=== PATIENT | male | born 1985 | race Asian ===

== ENCOUNTER 2021-01-19 12:49 | Emergency (ER) | payer SELFPAY ==
[2021-01-19] MEDS ORDERED: ALBUTEROL 2.5 MG/3 ML NEBU IH ONE (13:16)
[2021-01-19] MEDS ORDERED: IPRATROPIUM 0.02% NEBU 2.5 ML IH ONE (13:16)
--- NOTE | 2021-01-19 13:56 | Emergency Department Report ---
HPI - General Chief Complaint: Dyspnea/Respdistress Time Seen by Provider: 01/19/21 12:57 - HPI HPI: MSE 5 The patient is a 35-year-old male present with a chief complaint of cough. The patient states he flew back from [place] approximate 1 week ago since then he has had a progressively worsening cough has been productive of clear and thin yellow sputum. Patient is to subjective fever and pleurisy. Patient states for the past 3 days she has developed shortness of breath. Patient states he did receive the Jawbone vaccine for Covid and received a second dose in August 2020 ED Past Medical Hx - Past Medical History Previous Medical History?: No - Surgical History Past Surgical History?: No Hx Appendectomy: Yes - Family History Family history: no significant - Social History Smoking Status: Current Every Day Smoker (1/3 pack/day) Substance Use Type: None (Denies illicit drug use), Alcohol (Occasional) - Medications Home Medications: Home Medications Medication Instructions Recorded Confirmed Last Taken Type Albuterol Mdi (or & Nicu Only) 2 puff IH QID PRN #8.5 gram 01/19/21 Unknown Rx [ProAir HFA Inhaler] Benzonatate [Tessalon Perles] 100 mg PO Q8HR #30 capsule 01/19/21 Unknown Rx levoFLOXacin [Levaquin TAB] 500 mg PO QDAY #10 tablet 01/19/21 Unknown Rx traMADoL [Ultram] 50 mg PO Q6HR PRN #10 tablet 01/19/21 Unknown Rx ED Review of Systems ROS: Stated complaint: FEVER Other details as noted in HPI Constitutional: fever (Subjective) Eyes: denies: eye pain ENT: denies: throat pain Respiratory: cough, shortness of breath Cardiovascular: denies: chest pain Endocrine: no symptoms reported Gastrointestinal: denies: abdominal pain Genitourinary: denies: dysuria Musculoskeletal: denies: back pain Neurological: headache (With cough) Physical Exam - Physical Exam Vital Signs: Vital Signs 01/19/21 12:55 Temperature 98.9 F Pulse Rate 97 H Respiratory 24 Rate Blood Pressure 154/102 O2 Sat by Pulse 98 Oximetry Physical Exam: GENERAL: The patient is well-developed well-nourished male lying on stretcher coughing occasionally. [] HEENT: Normocephalic. Atraumatic. Extraocular motions are intact. Patient has moist mucous membranes. NECK: Supple. Trachea midline CHEST/LUNGS: Clear to auscultation. There is no respiratory distress noted. Occasional cough HEART/CARDIOVASCULAR: Regular. There is no tachycardia. There is no gallop rub or murmur. ABDOMEN: Abdomen is soft, nontender. Patient has normal bowel sounds. There is no abdominal distention. SKIN: There is no rash. There is no edema. There is no diaphoresis. NEURO: The patient is awake, alert, and oriented. The patient is cooperative. The patient has no focal neurologic deficits. The patient has normal speech. GCS 15 MUSCULOSKELETAL: There is no evidence of acute injury. ED Course Vital Signs 01/19/21 12:55 Temperature 98.9 F Pulse Rate 97 H Respiratory 24 Rate Blood Pressure 154/102 O2 Sat by Pulse 98 Oximetry ED Medical Decision Making - Lab Data Result diagrams: 01/19/21 13:39 01/19/21 13:40 - Radiology Data Radiology results: report reviewed (Chest x-ray), image reviewed (Chest x-ray) interpreted by me: Chest x-ray-no definite focal infiltrates, no pneumothorax [facility] [address] [place] [address] XRay Report Signed Patient: IMAN ESPINOSA MR#: [id number] : 1985 Acct:[id number] Age/Sex: 35 / M ADM Date: 01/19/21 Loc: ED Attending Dr: Ordering Physician: KELLY SHIN MD Date of Service: 01/19/21 Procedure(s): XR chest routine 2V Accession Number(s): [id number] cc: KELLY SHIN MD Fluoro Time In Minutes: CHEST 2 VIEWS INDICATION / CLINICAL INFORMATION: Cough, shortness of breath. COMPARISON: None available. FINDINGS: SUPPORT DEVICES: None. HEART / MEDIASTINUM: No significant abnormality. LUNGS / PLEURA: No significant pulmonary or pleural abnormality. No pneumothorax. ADDITIONAL FINDINGS: No significant additional findings. IMPRESSION: 1. No acute findings. Signer Name: Aakash Canas MD Signed: 01/19/2021 1:56 PM Workstation Name: [id number] Transcribed By: KARSTEN Dictated By: Aakash Canas MD Electronically Authenticated By: Aakash Canas MD Signed Date/Time: 01/19/21 1356 DD/ 55 TD/TT: Print Cancel - Medical Decision Making Patient is 2-minute walking SPO2 >/= 98% - Differential Diagnosis Pneumonia, influenza, bronchitis, Covid, PE Critical care attestation.: If time is entered above; I have spent that time in minutes in the direct care of this critically ill patient, excluding procedure time. ED Disposition Clinical Impression: Acute bronchitis Disposition: HOME / SELF CARE / HOMELESS Is pt being admited?: No Does the pt Need Aspirin: No Condition: Stable Instructions: Acute Bronchitis (ED), Acute Bronchitis, Adult, [id number] Additional Instructions: Return to the emergency department should you develop worsening symptoms, inability to tolerate food or liquids, high fever or any other concerns Prescriptions: levoFLOXacin [Levaquin TAB] 500 mg PO QDAY #10 tablet Albuterol Mdi (or & Nicu Only) [ProAir HFA Inhaler] 2 puff IH QID PRN #8.5 gram PRN Reason: Shortness Of Breath Benzonatate [Tessalon Perles] 100 mg PO Q8HR #30 capsule traMADoL [Ultram] 50 mg PO Q6HR PRN #10 tablet PRN Reason: Pain Referrals: PRIMARY CARE,MD [Primary Care Provider] - 3-5 Days DENISE MERCADO MD [Staff Physician] - 3-5 Days KIP WEBSTER MD [Staff Physician] - 3-5 Days (Dr. Webster is a helicopter technician. Please follow-up with him if your symptoms persist) Time of Disposition: 16:00
--- NOTE | 2021-01-19 14:01 | XRay Report ---
CHEST 2 VIEWS INDICATION / CLINICAL INFORMATION: Cough, shortness of breath. COMPARISON: None available. FINDINGS: SUPPORT DEVICES: None. HEART / MEDIASTINUM: No significant abnormality. LUNGS / PLEURA: No significant pulmonary or pleural abnormality. No pneumothorax. ADDITIONAL FINDINGS: No significant additional findings. IMPRESSION: 1. No acute findings. Signer Name: Aakash Canas MD Signed: 01/19/2021 1:56 PM Workstation Name: [id number]
[2021-01-19] MEDS ORDERED: BENZONATATE 100 MG CAP PO ONE (14:14)
[2021-01-19 14:21] LABS: Basophils % (Auto) 0.3 % (0.0-1.8); Eosinophils # (Auto) 0.3 K/mm3 (0.0-0.4); Eosinophils % (Auto) 2.7 % (0.0-4.3); Hematocrit 47.8 % (35.5-45.6); Hemoglobin 16.8 gm/dl (11.8-15.2); Lymphocytes # (Auto) 3.9 K/mm3 (1.2-5.4); Lymphocytes % (Auto) 33.3 % (13.4-35.0); Mean Corpuscular HGB Conc 35 % (32-34); Mean Corpuscular Volume 95 fl (84-94); Monocytes % (Auto) 8.6 % (0.0-7.3); Platelet Count 331 K/mm3 (140-440); Red Blood Count 5.06 M/mm3 (3.65-5.03); Red Cell Distribution Width 13.4 % (13.2-15.2)
[2021-01-19 14:28] VITALS: BP 167/95
[2021-01-19 14:37] LABS: BUN/Creatinine Ratio 11; Blood Urea Nitrogen 10 mg/dL (9-20); Calcium 9.4 mg/dL (8.4-10.2); Hemolysis Index 10
[2021-01-19 14:39] LABS: Creatine Kinase MB 2.3 ng/mL (0.0-4.0)
[2021-01-19] MEDS ORDERED: ACETAMINOPHEN 325 MG TAB PO ONE (15:54)
--- NOTE | 2021-01-21 11:45 | Electrocardiograph Report ---
[facility] Test Date: 2021-01-19 Test Time: 15:07:45 Pat Name: IMAN ESPINOSA Department: Room: Gender: M Press Operator: MARGO : 1985 Requested By: KELLY SHIN Order Number: [id number] Reading MD: Elder Calle Measurements Intervals [place] Rate: 74 P: 6 MS: 132 QRS: 6 QRSD: 82 T: -29 QT: 342 QTc: 380 Interpretive Statements Sinus rhythm No previous ECG available for comparison Electronically Signed On 01-21-2021 11:45:13 EDT by Elder Calle
== END 2021-01-19 16:49 | disposition home or self-care (01) ==
LOC: ED 12:49
DX: J20.9 Acute bronchitis, unspecified (principal); F17.210 Nicotine dependence, cigarettes, uncomplicated; Z90.49 Acquired absence of other specified parts of digestive tract; Z79.899 Other long term (current) drug therapy
CPT/HCPCS: 36415; 71046; 80048; 82550; 82553; 83880; 84484; 85025; 85379; 87400; 93005; 94640; 94644; 99284